=== PATIENT | male | born 1930 | race Two or more races ===

== ENCOUNTER 2018-12-20 15:49 | Inpatient (IN) | payer OTHER ==
[~2018-12-20] VITALS: Ht 175.3 cm; Wt 67.1 kg
[~2018-12-20 15:49] MED LIST: NORVASC5 MG; PRINIVIL20 MG
[2018-12-20] MEDS ORDERED: PRINIVIL10 MG (16:07)
[2018-12-20] MEDS ORDERED: ASPIR 8181 MG (16:08)
== END 2018-12-23 11:50 | disposition home or self-care (01) | DRG 690 ==
LOC: ER 15:49 → SEC-K 18:38 → SURG 18:38
PROVIDERS: ADMIT Urology
PROC: 0T9B70Z Drainage of Bladder with Drainage Device, Via Natural or Artificial Opening (ICD-10-PCS; principal; 2018-12-20)
DX: N30.01 Acute cystitis with hematuria (principal); R41.0 Disorientation, unspecified; R33.8 Other retention of urine; I10 Essential (primary) hypertension; Z85.46 Personal history of malignant neoplasm of prostate; Z08 Encounter for follow-up examination after completed treatment for malignant neoplasm